=== PATIENT | male | born 1945 | race Caucasian/White ===

== ENCOUNTER 2020-03-03 08:27 | Emergency (ER) | payer OTHER ==
--- NOTE | 2020-03-03 09:00 | EDM.PDOC ---
ED HPI GENERAL MEDICAL PROBLEM - General Chief Complaint: Cardiovascular Problem Stated Complaint: [facility] Time Seen by Provider: 03/03/20 08:30 Source of Information: Reports: Patient, EMS History Limitations: Reports: No Limitations - History of Present Illness INITIAL COMMENTS - FREE TEXT/NARRATIVE: 74-year-old male who [facility] being treated for pneumonia, also had a lung biopsy and was diagnosed with pulmonary cancer. He was discharged home with home oxygen, however overnight the oxygen ran out due to a possible leak in the tubing. They tried to call the [facility] this morning but he could not get a phone call back it when he became more short of breath he called the ambulance. Initially EMS picked him up and he was hypoxic, also was in a narrow complex tachycardia possibly SVT at a rate of 150. After applying oxygen however in route, his O2 sats normalized into the mid 90s and his SVT converted back to sinus rhythm. On arrival to the emergency room he now feels back to baseline. Onset: Unknown/Unsure (Symptoms developed overnight when he ran out of home O2) Associated Symptoms: Reports: Cough (Chronic persistent cough), Shortness of Breath. Denies: Confusion, Chest Pain - Related Data Allergies Allergy/AdvReac Type Severity Reaction Status Date / Time No Known Allergies Allergy Verified 03/03/20 08:39 Home Meds: Home Meds . [Unable to Verify Home Med List] 03/03/20 [History] Past Medical History HEENT History: Reports: Cataract Cardiovascular History: Reports: CAD, OR Respiratory History: Reports: Pneumonia, Recurrent, Other (See Below) Other Respiratory History: On home oxygen. lung cancer Gastrointestinal History: Reports: None Genitourinary History: Reports: None Musculoskeletal History: Reports: Fracture Other Musculoskeletal History: hip Neurological History: Reports: None Psychiatric History: Reports: None Endocrine/Metabolic History: Reports: None Hematologic History: Reports: None Immunologic History: Reports: None Oncologic (Cancer) History: Reports: Lung Dermatologic History: Reports: None - Infectious Disease History Infectious Disease History: Reports: Chicken Pox, Shingles - Past Surgical History HEENT Surgical History: Reports: Cataract Surgery Cardiovascular Surgical History: Reports: Coronary Artery Bypass Other Cardiovascular Surgeries/Procedures: cabg x3 2000 Respiratory Surgical History: Reports: Lung Biopsies, Other (See Below) Other Respiratory Surgeries/Procedures: cancer noduals GI Surgical History: Reports: None Other Musculoskeletal Surgeries/Procedures:: left hip repair Social & Family History - Tobacco Use Smoking Status *Q: Former Smoker Used Tobacco, but Quit: Yes Month/Year Tobacco Last Used: 30 years ago ED ROS GENERAL - Review of Systems Review Of Systems: See Below Constitutional: Denies: Fever, Chills HEENT: Denies: Throat Pain Respiratory: Reports: Shortness of Breath, Wheezing, Cough Cardiovascular: Denies: Chest Pain, Palpitations (Despite the SVT, patient did not feel palpitations or chest pain) GI/Abdominal: Denies: Nausea, Vomiting Neurological: Reports: Weakness ED EXAM, GENERAL - Physical Exam Exam: See Below Exam Limited By: No Limitations General Appearance: Alert, No Apparent Distress, Other (Patient was comfortable when he arrived to the emergency room) Respiratory/Chest: Decreased Breath Sounds (Diffuse decreased breath sounds bilaterally, no wheezing) Cardiovascular: Regular Rate, Rhythm Extremities: Normal Inspection. No: Pedal Edema Neurological: Alert, Oriented Psychiatric: Normal Affect, Normal Mood Skin Exam: Warm, Dry Course - Vital Signs Last Recorded V/S: Last Vital Signs Temp 98.9 F 03/03/20 10:26 Pulse 88 03/03/20 10:26 Resp 18 03/03/20 10:26 BP 101/59 L 03/03/20 10:26 Pulse Ox 97 03/03/20 10:26 - Orders/Labs/Meds Meds: Medications Discontinued Medications Generic Name Dose Route Start Last Admin Trade Name Peyton PRN Reason Stop Dose Admin Hydrocodone Bitart/Acetaminophen 1 tab 03/03/20 10:54 03/03/20 11:00 [place] 325-10 Mg PO 03/03/20 10:55 1 tab ONETIME ONE Administration - Re-Assessments/Exams Free Text/Narrative Re-Assessment/Exam: 03/03/20 08:59 This patient just needs his oxygen replaced at home. He should be able to continue [facility] 03/03/20 09:29 And oxygen supply company was contacted and they will come down and set the patient up with home O2, he can be transported home with his . 03/03/20 11:09 Awaiting for the home oxygen, the patient was having some pain from his biopsy in his chest so was given 1 10 mg [place]. The O2 healthcare representative did arrive and instructed the patient on home O2 use and he will be discharged with his . Departure - Departure Time of Disposition: 11:52 Disposition: Home, Self-Care 01 Clinical Impression: Hypoxia Pneumonia Qualifiers: Pneumonia type: due to unspecified organism Laterality: unspecified laterality - Discharge Information Instructions: Hypoxemia Referrals: PCP,None [Primary Care Provider] - Forms: ED Department Discharge Care Plan Goals: Resume your regular medications as prescribed [facility] as well as your home oxygen as instructed. Return our call if worries or concerns. Sepsis Event Note (ED) - Evaluation Sepsis Screening Result: No Definite Risk - Focused Exam Vital Signs: Vital Signs Temp Pulse Resp BP Pulse Ox 03/03/20 10:26 98.9 F 88 18 101/59 L 97 03/03/20 08:31 99.9 F 100 20 101/69 97
[2020-03-03] MEDS ORDERED: Acetaminophen/HYDROcodone 325-10 MG Tab PO ONE (10:54)
== END 2020-03-03 11:52 | disposition home or self-care (01) ==
LOC: JP.ED 08:27
DX: J18.9 Pneumonia, unspecified organism (principal); R09.02 Hypoxemia; I25.10 Atherosclerotic heart disease of native coronary artery without angina pectoris; I25.2 Old myocardial infarction; Z87.891 Personal history of nicotine dependence; Z95.5 Presence of coronary angioplasty implant and graft
CPT/HCPCS: 99285; A9270; 99283